=== PATIENT | female | born 1945 | race Caucasian/White ===

== ENCOUNTER 2019-06-14 07:10 | Outpatient (RCR) | payer MEDICARE, SELFPAY ==
[2019-06-14 08:20] VITALS: BP 140/73; PULSE 108; RESP 18; TEMP 35.9
[2019-06-14 08:25] VITALS: BP 140/73; PULSE 108; RESP 18; TEMP 35.9; O2SAT 100; BMI 30.4
[2019-06-14 08:35] VITALS: BP 100/67; PULSE 86; RESP 18; TEMP 36.8
[2019-06-14 08:50] VITALS: BP 100/62; PULSE 83; RESP 18; TEMP 36.9
[2019-06-14 09:20] VITALS: BP 107/56; PULSE 80; RESP 18; TEMP 36.8
[2019-06-14 09:50] VITALS: BP 112/61; PULSE 78; RESP 18; TEMP 36.8
== END 2019-06-15 23:59 | disposition home or self-care (01) ==
LOC: GILAB 07:10
PROVIDERS: Family Provider Family Medicine; PCP Family Medicine; Visit Provider Family Medicine
DX: D64.9 Anemia, unspecified (principal)
CPT/HCPCS: 36430; 86850; 86900; J1642; P9016

== ENCOUNTER 2019-07-06 11:24 | Outpatient (CLI) | payer MEDICARE, SELFPAY ==
[2019-07-06] VITALS (10 sets, daily range): BP systolic 105–145; BP diastolic 54–99; PULSE 72–80; RESP 16–18; TEMP 36.6–37.2; O2SAT 98–100
[2019-07-06] MEDS: sodium chloride 0.9% 100 ML 30 ML IV ×2 (14:30→16:45)
[2019-07-06] MEDS: acetaminophen 325 mg Tablet 650 MG PO (14:30)
[2019-07-06] MEDS: diphenhydrAMINE 25 mg Capsule PO (14:30)
== END 2019-07-06 11:25 | disposition home or self-care (01) ==
PROVIDERS: Family Provider Family Medicine; PCP Family Medicine; Visit Provider Family Medicine
DX: D64.9 Anemia, unspecified (principal)
CPT/HCPCS: 36430; 86850; 86900; J1642; J7030; P9016

== ENCOUNTER 2019-12-24 15:27 | Outpatient (CLI) | payer MEDICARE, SELFPAY ==
--- NOTE | 2019-12-24 15:41 | XR_ITS ---
WS: [id number] DEXA (DUAL ENERGY X-RAY ABSORPTIOMETRY) Bone mineral density was performed using a [employer] [address] machine. HISTORY: POST MENOPAUSAL COMPARISON: None available. Lumbar spine BMD (L1-L4): 1.046 g/cm2 T score: -1.1 Z score: 0.2 Total hip BMD: Left: 0.770 g/cm2. T score: -1.9 Z score: -0.6 Right: 0.766 g/cm2. T score: -1.9 Z score: -0.6 10 year probability of a major osteoporotic fracture is 19%. XR/XR DEXA axial skeleton* [id number] IMPRESSION: OSTEOPENIA based upon the WHO classification for females.
== END 2019-12-24 15:28 | disposition home or self-care (01) ==
LOC: RADWPI 15:34
PROVIDERS: Family Provider Family Medicine; PCP Family Medicine; Visit Provider Physician Assistant
DX: Z78.0 Asymptomatic menopausal state (principal); M85.89 Other specified disorders of bone density and structure, multiple sites
CPT/HCPCS: 77080

== ENCOUNTER 2020-03-29 04:24 | Emergency (ER) | payer MEDICARE, SELFPAY ==
[2020-03-29] VITALS (13 sets, daily range): BP systolic 97–135; BP diastolic 63–76; PULSE 57–83; RESP 12–24; TEMP 36.7; O2SAT 91–100; BMI 28.3
--- NOTE | 2020-03-29 04:29 | CTR_ITS ---
PROCEDURE INFORMATION: Exam: CT Abdomen And Pelvis With Contrast Exam date and time: 03/29/2020 4:31 AM Age: 74 years old Clinical indication: Nausea and vomiting; Abdominal pain; Generalized; Prior surgery; Surgery date: 6+ months; Surgery type: Hyster, gb, appy; Patient HX: History of peritoneal cancer TECHNIQUE: Imaging protocol: Computed tomography of the abdomen and pelvis with intravenous contrast. Radiation optimization: All CT scans at this facility use at least one of these dose optimization techniques: automated exposure control; mA and/or kV adjustment per patient size (includes targeted exams where dose is matched to clinical indication); or iterative reconstruction. Contrast material: VISIPAQUE 320; Contrast volume: 95 ml; Contrast route: INTRAVENOUS (IV); COMPARISON: No relevant prior studies available. RADIATION DOSE METRICS: Total DLP (mGy-cm): 971.53 FINDINGS: Liver: Normal. No mass. Gallbladder and bile ducts: Status post cholecystectomy. Pancreas: Normal. No ductal dilation. Spleen: Normal. No splenomegaly. Adrenal glands: Normal. No mass. Kidneys and ureters: Normal. No hydronephrosis. Stomach and bowel: There are fluid-filled dilated loops of small bowel present proximally with nondilated loops of small bowel present distally, findings suggesting a small obstruction. Appendix: No evidence of appendicitis. Intraperitoneal space: There is a loculated fluid collection seen within the abdomen extending from the left upper quadrant caudally and anteriorly into the pelvis. This was described on the CT examination dated 02/22/2017. Vasculature: Unremarkable. No abdominal aortic aneurysm. Lymph nodes: Unremarkable. No enlarged lymph nodes. Urinary bladder: Unremarkable as visualized. Reproductive: Unremarkable as visualized. Bones/joints: Unremarkable. No acute fracture. Soft tissues: There is a subcapsular hypoattenuation mass seen along the anterolateral aspect of the liver likely representing a subcapsular seroma. A subcapsular abscess cannot be entirely excluded. CT/CT abdomen pelvis w con* [id number] IMPRESSION: 1. There is a large loculated fluid collection present within the abdomen in this patient with a history of peritoneal malignancies. This has been described the CT examination dated 02/22/2017. 2. There are dilated fluid-filled loops of small bowel seen proximally with nondilated loops of small bowel present distally, findings that may represent a small bowel obstruction. 3. There is a subcapsular fluid collection seen within the hepatic dome possibly representing a subcapsular seroma although an abscess cannot be entirely excluded. Radiation Dose CTDIVOL = (mGy): DLP = 971.53 (mGy-cm)
[2020-03-29] MEDS: morphine 4 mg/mL SDV 1 mL IVP (04:47)
[2020-03-29] MEDS: sodium chloride 0.9% 1,000 ML 999 ML IV ×2 (04:49→11:00)
[2020-03-29 04:50] LABS: Hemoglobin 10.5 g/dL (11.5-15.3); Mean Corpuscular HGB Conc 30.9 g/dL (30.0-36.0); Mean Corpuscular Hemoglobin 30.9 pg (28.0-34.0); Mean Platelet Volume 9.1 fL (7.4-10.4); Platelet Count 240 10^3/cmm (130-400)
[2020-03-29] MEDS: ondansetron 2 mg/ML SDV 2 mL 4 MG IVP (04:50)
[2020-03-29 05:09] LABS: C Reactive Protein 3.3 mg/L (0.0-4.9); Lipase 25 U/L (13-60)
[2020-03-29 05:10] LABS: Lactate (Lactic Acid level) 2.8 mmol/L (0.5-2.2)
[2020-03-29 05:37] LABS: White Blood Count 32.4 10^3/uL (4.0-10.0)
[2020-03-29 05:41] LABS: Band Neutrophils Absolute 5.5 10^3/cmm (0.0-1.2); Eosinophils 0 %; Lymphocytes 7 %; Monocytes Absolute 0.3 10^3/cmm (0.1-0.6); Segmented Neutrophils 74 %; Total Cells Counted 100 (0-100)
[2020-03-29 05:48] LABS: Absolute Neutrophil 29.5 10^3/cmm (1.4-6.5); Macrocytosis Trace; Platelet Estimate Normal (Normal); Polychromasia Trace; Spherocytes 1+
[2020-03-29 05:53] LABS: Alanine Aminotransferase 49 U/L (0-33); Albumin Level 4.1 g/dL (3.5-5.2); Alkaline Phosphatase 168 IU/L (35-105); Blood Urea Nitrogen 19 mg/dL (8-23); Calcium 9.3 mg/dL (8.5-10.5); Carbon Dioxide 24 mmol/L (22-29); Chloride 98 mmol/L (98-107); Globulin 2.6 g/dL (1.3-4.6); Glucose 219 mg/dL (65-115); Osmolality Calculated 295 mOsm/kg (285-295); Sodium 138 mmol/L (136-145); Total Bilirubin 0.3 mg/dL (0.15-1.2); Total Protein 6.7 g/dL (6.6-8.7)
[2020-03-29 05:54] LABS: Anion Gap 20.1 (5-19); Aspartate Amino Transferase 61 U/L (0-32); Potassium 4.1 mmol/L (3.5-5.1)
--- NOTE | 2020-03-29 06:05 | ED_ITS ---
Documented by User: Troy Paco McculloughDO 03/29/20 18:11 HPI - Abdominal Pain General: Chief Complaint: Abdominal Pain Stated Complaint: n/v abd pain Time Seen by Provider: 03/29/20 04:26 History of Present Illness: HPI narrative: 74-year-old female, evidently with a history of peritoneal cancer, presents with widespread abdominal pain and vomiting. She notes that she has vomited 6-7 times in the last several hours. No fever. No blood in the emesis. She says she has had this before, and may have had a blockage . MD elicited complaint: abdominal pain Pertinent past history: other Onset (ago): hour(s) Pain Consistency: constant Location: Diffuse Severity: moderate Quality: stabbing Radiation: back Associated Symptoms: Denies change in bowel habits, coffee ground emesis, fever(s), hematuria, hematemesis, loose stools and melena Review of Systems Const: Denies: fever(s) Card: Denies: chest pain or palpitations Resp: Denies: dyspnea or productive cough GI: Denies: hematemesis, coffee ground emesis, change in bowel habits or melena : Denies: hematuria Neuro: Denies: headache(s) or numbness in extremities Physical Exam Const: GENERAL APPEARANCE: in distress, ill appearing and frail appearing ORIENTATION/CONSCIOUSNESS: Yes oriented to person, Yes oriented to place and Yes oriented to time HENMT: COMMON NORMALS: normocephalic, external ears normal and Normal external nose present HEAD & SCALP: normocephalic FACE & SINUS: normal facial exam NOSE: Normal external nose present and No nasal discharge present EXTERNAL EAR: Yes external ears normal Eye: COMMON NORMALS: Equal, round and reactive pupils present, EOMs intact bilaterally and conjunctivae normal EYELID: eyelids normal CONJUNCTIVA: Yes conjunctivae normal PUPIL: Yes Equal, round and reactive pupils present Neck/C-Spine: GENERAL: No tracheal deviation Chest: COMMONS NORMALS: normal inspection of the chest CHEST: No tenderness Resp: COMMON NORMALS: clear to auscultation bilaterally EFFORT & INSPECTION: No tachypneic, No respiratory distress, No retractions, No uses acc essory muscles and No tracheal deviation AUSCULTATION: clear to auscultation bilaterally, no rhonchi, no wheezes and lung sounds not diminished Cardio: COMMON NORMALS: regular rate and regular rhythm RATE: regular rate RHYTHM: regular rhythm HEART SOUNDS: no murmurs PERIPHERAL PULSES: radial pulses present GI: INSPECTION: No abdominal distension AUSCULTATION: No Hyperactive bowel sounds present and No Hypoactive bowel sounds present PALPATION: Yes Tenderness to palpation present (GI) Details: LLQ, Yes Guarding due to palpation present (GI) and No Rigid due to palpation PERCUSSION: no dullness to percussion and tympanic to percussion Neuro: SENSORIUM/ORIENTATION: Yes oriented to person, Yes oriented to place and Yes oriented to time Psych: COMMON NORMALS: mental status grossly normal Skin: COMMON NORMALS: no rashes or lesions noted GENERAL SKIN EXAM: no rashes or lesions noted Course Vital Signs: Vital signs: Vital Signs Temperature 98.0 F 03/29/20 04:24 Pulse Rate 83 03/29/20 14:00 Respiratory Rate 23 H 03/29/20 14:00 Blood Pressure 111/73 03/29/20 14:00 Pulse Oximetry 100 03/29/20 14:00 MDM - Abdominal Pain MDM Narrative: Medical decision making narrative: 74-year-old female with diffuse belly pain and vomiting. She has a history of malignancy. Her white blood cell count is 32. Hemoglobin 10.5. Electrolytes look normal. She is awaiting a CT scan. She will be checked out to Dr. Dennis at shift change. Lab Data: Labs: Lab Results 03/29/20 03/29/20 03/29/20 Range/Units 04:37 04:37 04:37 WBC 32.4 H* (4.0-10.0) 10^3/ uL RBC 3.40 L (4.1-5.3) 10^6/u L Hgb 10.5 L (11.5-15.3) g/dL Hct 34.0 L (37.0-47.0) % MCV 100.0 H (81-99) fL MCH 30.9 (28.0-34.0) pg MCHC 30.9 (30.0-36.0) g/dL RDW 17.0 H (12.1-15.1) % Plt Count 240 (130-400) 10^3/c mm MPV 9.1 (7.4-10.4) fL Lymph % (Auto) Not Reportable Crawford % (Auto) Not Reportable Lymph # (Auto) Not Reportable Crawford # (Auto) Not Reportable Total Counted 100 (0-100) Atypical Lymphs % 0.0 (0-5) % Absolute Neutrophi ls 29.5 H (1.4-6.5) 10^3/c mm Segmented Neutroph ils 74 % Abs Segm Neuts (Ma n) 24.0 H (1.6-7.1) 10/cmm Band Neutrophils 17.0 % Abs Band Neuts (Ma n) 5.5 H (0.0-1.2) 10^3/c mm Lymphocytes (Manua l) 7 % Monocytes (Manual) 1.0 % Absolute Monocytes 0.3 (0.1-0.6) 10^3/c mm Eosinophils (Manua l) 0 % Absolute Eosinophi ls 0.0 (0.0-0.7) 10^3/c mm Basophils (Manual) 0.0 % Absolute Basophils 0.0 (0.0-0.2) 10^3/c mm Metamyelocytes 1.0 % Platelet Estimate Normal (Normal) Polychromasia Trace Macrocytosis Trace Spherocytes 1+ Sodium (136-145) mmol/L Potassium (3.5-5.1) mmol/L Chloride (98-107) mmol/L Carbon Dioxide (22-29) mmol/L Anion Gap (5-19) BUN (8-23) mg/dL Creatinine (0.5-0.9) mg/dL GFR Calculation Glucose (65-115) mg/dL Calculated Osmolal ity (285-295) mOsm/k g Lactate 2.8 H (0.5-2.2) mmol/L Calcium (8.5-10.5) mg/dL Total Bilirubin (0.15-1.2) mg/dL AST (0-32) U/L ALT (0-33) U/L Alkaline Phosphata se (35-105) IU/L C-Reactive Protein 3.3 (0.0-4.9) mg/L Total Protein (6.6-8.7) g/dL Albumin (3.5-5.2) g/dL Globulin (1.3-4.6) g/dL Lipase 25 (13-60) U/L Urine Color (Yellow) Urine Appearance (CLEAR) Urine pH (5-7) Ur Specific Gravit y (1.005-1.030) Urine Protein (Negative) Urine Glucose (UA) (Normal) Urine Ketones (Negative) Urine Blood (Negative) Urine Nitrate (Negative) Urine Bilirubin (Negative) Urine Urobilinogen (Negative) mg/dL Ur Leukocyte Holly ase (Negative) Urine RBC (0-2) /hpf Urine WBC (0-5) /hpf Ur Squamous Epith Cells (0-5) /hpf Amorphous Sediment Urine Bacteria (NONE) /hpf 03/29/20 03/29/20 Range/Units 04:37 07:16 WBC (4.0-10.0) 10^3/ uL RBC (4.1-5.3) 10^6/u L Hgb (11.5-15.3) g/dL Hct (37.0-47.0) % MCV (81-99) fL MCH (28.0-34.0) pg MCHC (30.0-36.0) g/dL RDW (12.1-15.1) % Plt Count (130-400) 10^3/c mm MPV (7.4-10.4) fL Lymph % (Auto) Crawford % (Auto) Lymph # (Auto) Crawford # (Auto) Total Counted (0-100) Atypical Lymphs % (0-5) % Absolute Neutrophi ls (1.4-6.5) 10^3/c mm Segmented Neutroph ils % Abs Segm Neuts (Ma n) (1.6-7.1) 10/cmm Band Neutrophils % Abs Band Neuts (Ma n) (0.0-1.2) 10^3/c mm Lymphocytes (Manua l) % Monocytes (Manual) % Absolute Monocytes (0.1-0.6) 10^3/c mm Eosinophils (Manua l) % Absolute Eosinophi ls (0.0-0.7) 10^3/c mm Basophils (Manual) % Absolute Basophils (0.0-0.2) 10^3/c mm Metamyelocytes % Platelet Estimate (Normal) Polychromasia Macrocytosis Spherocytes Sodium 138 (136-145) mmol/L Potassium 4.1 (3.5-5.1) mmol/L Chloride 98 (98-107) mmol/L Carbon Dioxide 24 (22-29) mmol/L Anion Gap 20.1 H (5-19) BUN 19 (8-23) mg/dL Creatinine 1.1 H (0.5-0.9) mg/dL GFR Calculation Not Reportable Glucose 219 H (65-115) mg/dL Calculated Osmolal ity 295 (285-295) mOsm/k g Lactate (0.5-2.2) mmol/L Calcium 9.3 (8.5-10.5) mg/dL Total Bilirubin 0.3 (0.15-1.2) mg/dL AST 61 H (0-32) U/L ALT 49 H (0-33) U/L Alkaline Phosphata se 168 H (35-105) IU/L C-Reactive Protein (0.0-4.9) mg/L Total Protein 6.7 (6.6-8.7) g/dL Albumin 4.1 (3.5-5.2) g/dL Globulin 2.6 (1.3-4.6) g/dL Lipase (13-60) U/L Urine Color Yellow (Yellow) Urine Appearance Clear (CLEAR) Urine pH 5 (5-7) Ur Specific Gravit y 1.010 (1.005-1.030) Urine Protein Trace (Negative) Urine Glucose (UA) Norm (Normal) Urine Ketones Negative (Negative) Urine Blood Neg (Negative) Urine Nitrate Negative (Negative) Urine Bilirubin Neg (Negative) Urine Urobilinogen Norm (Negative) mg/dL Ur Leukocyte Holly ase Negative (Negative) Urine RBC None (0-2) /hpf Urine WBC Rare (0-5) /hpf Ur Squamous Epith Cells 0-4 H (0-5) /hpf Amorphous Sediment Not Reportable Urine Bacteria Trace (NONE) /hpf Discharge Plan Discharge Patient Disposition: Xfer Other Clinical Impression: Small bowel obstruction, Abdominal pain Condition: Stable Discharge Orders: Transfer Out of Facility (Order); Ordered 03/29/20 Ordered By: Radha Dennis Referrals: Paul De Paz MD [Primary Care Provider] - Patient Instructions: Abdominal Pain (ED) Coding Level of Care Code ED Medical Scribe for Chg Fwd Exam Comprehensive Documented by User: Radha Dennis MD 03/29/20 11:50 HPI - Abdominal Pain General: Chief Complaint: Abdominal Pain Stated Complaint: n/v abd pain Time Seen by Provider: 03/29/20 04:26 Course Vital Signs: Vital signs: Vital Signs Temperature 98.0 F 03/29/20 04:24 Pulse Rate 83 03/29/20 14:00 Respiratory Rate 23 H 03/29/20 14:00 Blood Pressure 111/73 03/29/20 14:00 Pulse Oximetry 100 03/29/20 14:00 MDM - Abdominal Pain MDM Narrative: Medical decision making narrative: Patient presents here with small bowel obstruction with possible infection with elevated white count. Patient given IV antibiotics here and had NG tube placed. Spoke to patient and family and they requested transfer. I believe patient does require transfer as well for higher level of care and continuity. Patient has extensive history with her gynecology oncology we do not have Kati Kaiser here. I spoke to Dr. Malhotra at [facility] who is her oncologist and will transfer there. Patient has been stable while here. Lab Data: Labs: Lab Results 03/29/20 03/29/20 03/29/20 Range/Units 04:37 04:37 04:37 WBC 32.4 H* (4.0-10.0) 10^3/ uL RBC 3.40 L (4.1-5.3) 10^6/u L Hgb 10.5 L (11.5-15.3) g/dL Hct 34.0 L (37.0-47.0) % MCV 100.0 H (81-99) fL MCH 30.9 (28.0-34.0) pg MCHC 30.9 (30.0-36.0) g/dL RDW 17.0 H (12.1-15.1) % Plt Count 240 (130-400) 10^3/c mm MPV 9.1 (7.4-10.4) fL Lymph % (Auto) Not Reportable Crawford % (Auto) Not Reportable Lymph # (Auto) Not Reportable Crawford # (Auto) Not Reportable Total Counted 100 (0-100) Atypical Lymphs % 0.0 (0-5) % Absolute Neutrophi ls 29.5 H (1.4-6.5) 10^3/c mm Segmented Neutroph ils 74 % Abs Segm Neuts (Ma n) 24.0 H (1.6-7.1) 10/cmm Band Neutrophils 17.0 % Abs Band Neuts (Ma n) 5.5 H (0.0-1.2) 10^3/c mm Lymphocytes (Manua l) 7 % Monocytes (Manual) 1.0 % Absolute Monocytes 0.3 (0.1-0.6) 10^3/c mm Eosinophils (Manua l) 0 % Absolute Eosinophi ls 0.0 (0.0-0.7) 10^3/c mm Basophils (Manual) 0.0 % Absolute Basophils 0.0 (0.0-0.2) 10^3/c mm Metamyelocytes 1.0 % Platelet Estimate Normal (Normal) Polychromasia Trace Macrocytosis Trace Spherocytes 1+ Sodium (136-145) mmol/L Potassium (3.5-5.1) mmol/L Chloride (98-107) mmol/L Carbon Dioxide (22-29) mmol/L Anion Gap (5-19) BUN (8-23) mg/dL Creatinine (0.5-0.9) mg/dL GFR Calculation Glucose (65-115) mg/dL Calculated Osmolal ity (285-295) mOsm/k g Lactate 2.8 H (0.5-2.2) mmol/L Calcium (8.5-10.5) mg/dL Total Bilirubin (0.15-1.2) mg/dL AST (0-32) U/L ALT (0-33) U/L Alkaline Phosphata se (35-105) IU/L C-Reactive Protein 3.3 (0.0-4.9) mg/L Total Protein (6.6-8.7) g/dL Albumin (3.5-5.2) g/dL Globulin (1.3-4.6) g/dL Lipase 25 (13-60) U/L Urine Color (Yellow) Urine Appearance (CLEAR) Urine pH (5-7) Ur Specific Gravit y (1.005-1.030) Urine Protein (Negative) Urine Glucose (UA) (Normal) Urine Ketones (Negative) Urine Blood (Negative) Urine Nitrate (Negative) Urine Bilirubin (Negative) Urine Urobilinogen (Negative) mg/dL Ur Leukocyte Holly ase (Negative) Urine RBC (0-2) /hpf Urine WBC (0-5) /hpf Ur Squamous Epith Cells (0-5) /hpf Amorphous Sediment Urine Bacteria (NONE) /hpf 03/29/20 03/29/20 Range/Units 04:37 07:16 WBC (4.0-10.0) 10^3/ uL RBC (4.1-5.3) 10^6/u L Hgb (11.5-15.3) g/dL Hct (37.0-47.0) % MCV (81-99) fL MCH (28.0-34.0) pg MCHC (30.0-36.0) g/dL RDW (12.1-15.1) % Plt Count (130-400) 10^3/c mm MPV (7.4-10.4) fL Lymph % (Auto) Crawford % (Auto) Lymph # (Auto) Crawford # (Auto) Total Counted (0-100) Atypical Lymphs % (0-5) % Absolute Neutrophi ls (1.4-6.5) 10^3/c mm Segmented Neutroph ils % Abs Segm Neuts (Ma n) (1.6-7.1) 10/cmm Band Neutrophils % Abs Band Neuts (Ma n) (0.0-1.2) 10^3/c mm Lymphocytes (Manua l) % Monocytes (Manual) % Absolute Monocytes (0.1-0.6) 10^3/c mm Eosinophils (Manua l) % Absolute Eosinophi ls (0.0-0.7) 10^3/c mm Basophils (Manual) % Absolute Basophils (0.0-0.2) 10^3/c mm Metamyelocytes % Platelet Estimate (Normal) Polychromasia Macrocytosis Spherocytes Sodium 138 (136-145) mmol/L Potassium 4.1 (3.5-5.1) mmol/L Chloride 98 (98-107) mmol/L Carbon Dioxide 24 (22-29) mmol/L Anion Gap 20.1 H (5-19) BUN 19 (8-23) mg/dL Creatinine 1.1 H (0.5-0.9) mg/dL GFR Calculation Not Reportable Glucose 219 H (65-115) mg/dL Calculated Osmolal ity 295 (285-295) mOsm/k g Lactate (0.5-2.2) mmol/L Calcium 9.3 (8.5-10.5) mg/dL Total Bilirubin 0.3 (0.15-1.2) mg/dL AST 61 H (0-32) U/L ALT 49 H (0-33) U/L Alkaline Phosphata se 168 H (35-105) IU/L C-Reactive Protein (0.0-4.9) mg/L Total Protein 6.7 (6.6-8.7) g/dL Albumin 4.1 (3.5-5.2) g/dL Globulin 2.6 (1.3-4.6) g/dL Lipase (13-60) U/L Urine Color Yellow (Yellow) Urine Appearance Clear (CLEAR) Urine pH 5 (5-7) Ur Specific Gravit y 1.010 (1.005-1.030) Urine Protein Trace (Negative) Urine Glucose (UA) Norm (Normal) Urine Ketones Negative (Negative) Urine Blood Neg (Negative) Urine Nitrate Negative (Negative) Urine Bilirubin Neg (Negative) Urine Urobilinogen Norm (Negative) mg/dL Ur Leukocyte Holly ase Negative (Negative) Urine RBC None (0-2) /hpf Urine WBC Rare (0-5) /hpf Ur Squamous Epith Cells 0-4 H (0-5) /hpf Amorphous Sediment Not Reportable Urine Bacteria Trace (NONE) /hpf Imaging Data ^: CT Abd/Pel: Radiologist's impression: [place] [address] CT Scan Report Signed Patient: Myrtle Cade Unit #: [id number] : 1945 Age/Sex: 74 / F ADM Date: 03/29/20 Loc: ER Room/Bed: Attending Dr: Ordering Provider/Ordering MD: Troy Mccullough DO Date of Service: 03/29/20 Procedure(s): CT abdomen pelvis w con* [id number] Accession Number(s): [id number] Report Number: [id number] PROCEDURE INFORMATION: Exam: CT Abdomen And Pelvis With Contrast Exam date and time: 03/29/2020 4:31 AM Age: 74 years old Clinical indication: Nausea and vomiting; Abdominal pain; Generalized; Prior surgery; Surgery date: 6+ months; Surgery type: Hyster, gb, appy; Patient HX: History of peritoneal cancer TECHNIQUE: Imaging protocol: Computed tomography of the abdomen and pelvis with intravenous contrast. Radiation optimization: All CT scans at this facility use at least one of these dose optimization techniques: automated exposure control; mA and/or kV adjustment per patient size (includes targeted exams where dose is matched to clinical indication); or iterative reconstruction. Contrast material: VISIPAQUE 320; Contrast volume: 95 ml; Contrast route: INTRAVENOUS (IV); COMPARISON: No relevant prior studies available. RADIATION DOSE METRICS: Total DLP (mGy-cm): 971.53 FINDINGS: Liver: Normal. No mass. Gallbladder and bile ducts: Status post cholecystectomy. Pancreas: Normal. No ductal dilation. Spleen: Normal. No splenomegaly. Adrenal glands: Normal. No mass. Kidneys and ureters: Normal. No hydronephrosis. Stomach and bowel: There are fluid-filled dilated loops of small bowel present proximally with nondilated loops of small bowel present distally, findings suggesting a small obstruction. Appendix: No evidence of appendicitis. Intraperitoneal space: There is a loculated fluid collection seen within the abdomen extending from the left upper quadrant caudally and anteriorly into the pelvis. This was described on the CT examination dated 02/22/2017. Vasculature: Unremarkable. No abdominal aortic aneurysm. Lymph nodes: Unremarkable. No enlarged lymph nodes. Urinary bladder: Unremarkable as visualized. Reproductive: Unremarkable as visualized. Bones/joints: Unremarkable. No acute fracture. Soft tissues: There is a subcapsular hypoattenuation mass seen along the anterolateral aspect of the liver likely representing a subcapsular seroma. A subcapsular abscess cannot be entirely excluded. CT/CT abdomen pelvis w con* [id number] IMPRESSION: 1. There is a large loculated fluid collection present within the abdomen in this patient with a history of peritoneal malignancies. This has been described the CT examination dated 02/22/2017. 2. There are dilated fluid-filled loops of small bowel seen proximally with nondilated loops of small bowel present distally, findings that may represent a small bowel obstruction. 3. There is a subcapsular fluid collection seen within the hepatic dome possibly representing a subcapsular seroma although an abscess cannot be entirely excluded. Radiation Dose CTDIVOL = (mGy): DLP = 971.53 (mG Discharge Plan Discharge Patient Disposition: Xfer Other Clinical Impression: Small bowel obstruction, Abdominal pain Condition: Stable Discharge Orders: Transfer Out of Facility (Order); Ordered 03/29/20 Ordered By: Radha Dennis Referrals: Paul De Paz MD [Primary Care Provider] - Patient Instructions: Abdominal Pain (ED) Coding Level of Care Code ED Medical Scribe for Chg Fwd Exam Comprehensive
[2020-03-29] MEDS: LORazepam 2 mg/mL INJ 1 mL 1 MG IVP (08:00)
[2020-03-29] MEDS: piperacillin-tazobactam 3.375 GM in sodium chloride 0.9% (plus) 50 ML IV (08:00)
[2020-03-29] MEDS: vancomycin 1,000 MG in sodium chloride 0.9% 250 ML 250 MG IV (08:01)
[2020-03-29 08:09] LABS: Urine Color Yellow (Yellow)
[2020-03-29 08:10] LABS: Add Urine Culture? No; Add Urine Microscopic? YES; Bacteria Urine TRACE /hpf; Bilirubin Urine Neg (Negative); Blood Urine Neg (Negative); Glucose Urine UA Norm (Normal); Ketones Urine Negative (Negative); Leukocyte Esterase Urine Negative (Negative); Nitrate Urine Negative (Negative); Protein Urine Trace (Negative); Squamous Epithelial Cell Urine 0-4 /hpf (0-5); Urine Appearance Clear (CLEAR); Urobilinogen Urine Norm (Negative); WBC Urine RARE /hpf (0-5); pH Urine 5 (5-7)
--- NOTE | 2020-03-29 08:14 | XRR_ITS ---
PROCEDURE INFORMATION: Exam: XR Abdomen, 1 View Exam date and time: 03/29/2020 8:42 AM Age: 74 years old Clinical indication: Device placement; Gi device; Nasogastric tube; Additional info: Ng tube TECHNIQUE: Imaging protocol: XR of the abdomen. Views: Frontal supine view of the abdomen. 1 View. COMPARISON: CT abdomen pelvis w con* [id number] 08/01/2018 12:13 PM FINDINGS: Tubes, catheters and devices: Nasogastric tube is placed with its tip in the proximal stomach. Proximal side port is within the distal esophagus. Lungs: Some strandy opacities are seen in the lung bases bilaterally likely representing atelectasis. Gastrointestinal tract: Normal. No bowel dilation. Intraperitoneal space: Residual contrast is seen within the renal calices and pelvis sees bilaterally. Bones/joints: Unremarkable. XR/XR KUB [id number] IMPRESSION: Nasogastric tube tip in proximal stomach with the proximal side port in the distal esophagus.
== END 2020-03-29 15:29 | disposition other institution (70) ==
PROVIDERS: Emergency Medicine; Emergency Provider Emergency Medicine; Family Provider Family Medicine; PCP Family Medicine
DX: K56.609 Unspecified intestinal obstruction, unspecified as to partial versus complete obstruction (principal)
CPT/HCPCS: 12345; 74018; 74177; 80053; 81001; 83605; 83690; 85007; 85025; 86140; 96365; 96367; 96375; 99283; 99291; J2060; J2270; J2405; J2543; J3370; J7030; J7050; Q9967

== ENCOUNTER 2020-08-08 05:51 | Outpatient (CLI) | payer OTHER, MEDICARE, SELFPAY | END 2020-08-08 05:52 | disposition home or self-care (01) | PROVIDERS: Family Provider Family Medicine; PCP Family Medicine; Visit Provider Internal Medicine Medical Oncology | DX: Z53.8 Procedure and treatment not carried out for other reasons (principal) ==